=== PATIENT | female | born 2005 | race Two or more races ===

== ENCOUNTER 2024-05-11 00:20 | Emergency (ER) | payer SELFPAY ==
--- NOTE | 2024-05-10 23:33 | XR_ITS ---
Examination: Complete OB ultrasound greater than 14 weeks Date and time of exam: May 10, 2024 11:50 PM Indications: Dizziness weakness beginning one week ago Findings: Viable intrauterine single fetus with single amniotic sac presentation Vertex Cardiac motion 137 BPM Placenta anterior grade 3 Umbilical cord insertion seen Amniotic fluid index 26.4 cm spine maternal left Ovaries obscured by bowel gas. Composite estimated gestational age based on BPD, head circumference, abdominal circumference, femur length is 32 weeks 4 days Estimated weight 1775 g. Survey of intracranial anatomy, spinal anatomy, abdominal anatomy, four-chamber heart performed with no abnormalities identified. Impression: Viable intrauterine gestation vertex presentation.
--- NOTE | 2024-05-10 23:34 | EKG_ITS ---
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
[2024-05-10 23:36] VITALS: RESP 17; TEMP 37
[2024-05-10 23:39] VITALS: BP 109/71; PULSE 138; PULSE 144; O2SAT 100
[2024-05-10 23:44] VITALS: BMI 30.4
[2024-05-11 00:24] VITALS: BMI 30.2
[2024-05-11 00:49] VITALS: BP 108/74; PULSE 98; RESP 18; TEMP 36.9; O2SAT 97
--- NOTE | 2024-05-11 00:51 | EDNOTE_ITS ---
ED Dizzyness RME/HPI General Chief Complaint: Dizziness Stated Complaint: DIZZINESS X 5 DAYS Time Seen by Provider: 05/11/24 00:55 Arrival date/time: 05/11/24 00:20 Limitations: no limitations RME / HPI RME / HPI Narrative: Dr. Regan's Main ED Evaluation: 18yo female who is 31 weeks gestation presents to the ED for a chief complaint of dizziness x 5 days. Patient states she's been dizzy and lightheaded for the last 5 days and felt like she was going to pass out tonight, so she came in for evaluation. She states she's been drinking water. She denies any fever, chills, vision changes, UTI symptoms or any other associated symptoms. No known allergies. Related Data Home Medications ?Medication ?Instructions ?Recorded ?Confirmed No Known Home Medications 06/01/19 07/22/22 Allergies Allergy/AdvReac Type Severity Reaction Status Date / Time No Known Allergies Allergy Verified 05/11/24 00:27 Review of Systems Review of Systems Systems Reviewed: All systems reviewed, normal except as documented Past Medical History Past Medical History CARDIAC: Negative Congestive Heart Failure RESPIRATORY: Negative Chronic Obstructive Pulmonary Disease (COPD) GENITOURINARY: Negative Renal Disease ENDOCRINE: Negative Diabetes Mellitus Type 1 or Diabetes Mellitus Type 2 Social History SMOKING STATUS: Never smoker Travel History EBOLA RISK: No ED Exam General Limitations: Present no limitations General appearance: Present alert and in no apparent distress Head Head exam: Present atraumatic Eye Eye exam: Present normal appearance, PERRL and EOMI ENT ENT exam: Present normal oropharynx and mucous membranes dry Neck Neck exam: Present normal inspection, full ROM and trachea midline Chest Chest inspection: Present normal inspection and symmetric chest wall rise Respiratory Respiratory exam: Present normal lung sounds bilaterally Cardiovascular Cardiovascular exam: Present normal rhythm, tachycardia and normal heart sounds; Absent systolic murmur or diastolic murmur Abdominal Exam Abdominal exam: Present soft, normal bowel sounds and other (gravid) Extremities Exam Extremities exam: Present normal inspection and full ROM; Absent pedal edema Back Exam Back exam: Present normal inspection and full ROM Neurological Exam Neurological exam: Present alert, oriented X3 and CN II-XII intact Psychiatric Psychiatric exam: Present normal affect and normal mood Skin Skin exam: Present warm, dry, intact and normal color Course Quality Measures none Orders Category Date Time Status EKG (ED ONLY) *Do not use* NOW Care 05/11/24 00:56 Completed IV [Insert IV] STAT Care 05/11/24 00:56 Active Non-Stress Test NOW Care 05/10/24 23:33 Active Sterile Vaginal Exam PRN Care 05/10/24 23:45 Ordered EKG (ED Only) Stat Exams 05/11/24 00:56 Ordered US OB >= 14 weeks Fetus Stat Exams 05/10/24 23:33 Taken CBC Stat Lab 05/11/24 01:30 Completed CMP [Comprehensive Metabolic Panel] Stat Lab 05/11/24 01:30 Completed Drug Screen,Urine Stat Lab 05/11/24 01:57 Completed Urinalysis Stat Lab 05/11/24 01:57 Completed Sodium Chloride 0.9% 1000 ml [Ns] 1,000 ml Med 05/11/24 00:56 Discontinued IV 999 mls/hr EKG (RT) Stat RT 05/10/24 23:34 Draft Reevaluation(s) Reevaluation #1: Patient states she feels significantly better after receiving fluids and no longer feels dizzy. Patient is stable to be discharged home. Time: 02:30 Vital Signs Vital signs: Vital Signs Temperature 98.6 F 05/10/24 23:36 Respiratory Rate 17 05/10/24 23:36 Pulse ox is 97% on room air, which is normal according to my interpretation. Dizziness MDM Narrative MDM Narrative:: 18-year-old at 31 weeks cleared by OB and sent to the emergency department. The patient states she has been drinking less fluid in the last few days. She feeling lightheaded but no syncope. After liter of fluids here to emergency department patient feels better. EKG does not show arrhythmia and otherwise the patient has a normal QTc. No evidence of UTI. Baby is kicking and otherwise the patient does not feel she is in labor. Return precautions are given understood. Patient data External records reviewed:: [facility] previous records (Per chart review, patient was seen here on 07/22/22 for lactic acidosis.) Clinical information provided by:: patient Social determinants that could affect healthcare access:: none Patient has the following chronic illnesses:: none How is presenting disease/condition affected by chronic disease/condition?: no chronic disease Evaluation data The following diagnostics were reviewed and interpreted by me:: lab results Lab and/or radiology exams considered but not ordered:: none Interpretation Summary: CBC is normal, CMP is normal, UDS is negative, UA is negative for UTI, according to my interpretation. Medications / Prescriptions Medications or Prescriptions considered but not ordered:: none Medication administrations:: Medication Administration History Discontinued Medications Sodium Chloride (Ns) 1,000 mls @ 999 mls/hr IV .Q1H1M ONE Stop: 05/11/24 01:56 Last Infusion: 05/11/24 01:55 Dose: Infused Documented By: Admin: 05/11/24 01:19 Dose: 999 mls/hr Documented By: TC see above, if any Consultations Consultation(s) initiated? (list below): No Diagnosis Dizziness Differential Diagnosis: other (dehydration, electrolyte abnormality, arrhythmia) Most likely diagnosis given after review of the tests above:: see below Admission Indicated Admission indicated?: not indicated Admission Request Was there a request for admission?: No Disposition Plan Disposition Plan: Discharge Discharge Attestation Discharge Attestation: The patient and all family members were given an opportunity to ask questions and understood the discharge instructions. Discharge instructions specifically effects, indications for sooner follow up or return to the emergency department, and the expected course of current diagnosis. Patient condition: Stable Discharge Plan Plan Patient Disposition: HOME (Self Care) Disposition Comment: ED Patient condition on transfer: Stable Prescriptions/Referrals Prescriptions/Med Rec: No Action No Known Home Medications Referrals: Shahzad Crawford MD [Physician] - Problem List Clinical Impression: Acute dehydration Patient/Caregiver Discharge Instructions Diet Instructions: Stay hydrated Pedialyte or Gatorade Education Materials: Kick Counts, Dehydration, ED Dizziness, Uncertain Cause, Antepartum Discharge Additional Instructions: Stay hydrated with Pedialyte and/or Gatorade. Return to the emergency department for any worsening symptoms, or any other concerns. See your primary care or [facility] as scheduled. Print Language: [place] Stand Alone Forms: Rula Award Info., Patient Portal Info Letter
--- NOTE | 2024-05-11 01:02 | PC.NURSE ---
at 0013, report called to ED restaurant associate, Jose.
[2024-05-11] MEDS: SODIUM CHLORIDE 0.9% 1000 ML 1,000 ML 999 ML IV (01:19)
--- NOTE | 2024-05-11 01:26 | PC.NURSE ---
Pt states that today's episode of dizziness has gotten better since being at the hospital. Pt also admits that this is her first and she is nervous
[2024-05-11 01:31] VITALS: BP 108/62; PULSE 81; RESP 25; O2SAT 98
--- NOTE | 2024-05-11 01:39 | PRELIM_ITS ---
Obstetric ultrasound with Doppler. May 10, 2024 2350 hours Clinical history: DizzinessComparison : None.Findings:There is a gravid uterus with a live fetus in vertex presentation of mean gestational age 31 weeks and 2 days (by biometry). cardiac activity is present at a heart rate of 13 7 beats per minute. The placenta is anterior in location, maturity grade 3. There is no evidence of p lacenta previa or retroplacental hemorrhage. Amniotic fluid is adequate (BRENDA = 26.4 cm). Estimated fe ghazala weight is 1775 grams.Impression:Gravid uterus with a single live fetus in vertex presentation of mean gestational age 31 weeks 2 days. Report Electronically Signed By: Hitesh Marks 05/11/2024 1: 39:15 AM [EST]
[2024-05-11 01:45] VITALS: BP 109/81; PULSE 90; RESP 24; O2SAT 100
[2024-05-11 02:00] LABS: Basophils % (Auto) 0 % (0-2.5); Eosinophils % (Auto) 0 % (0-10); Hematocrit 40.1 % (36.0-46.0); Hemoglobin 13.6 g/dL (12.0-16.0); Immature Granulocytes % (Auto) 1 % (0-0); Immature Granulocytes Auto 0.04 Thou/mm3 (0.00-0.00); Lymphocytes # (Auto) 0.7 Thou/mm3 (1.0-5.0); Lymphocytes % (Auto) 15 % (10-50); Mean Corpuscular HGB Conc 33.9 g/dl (31.0-37.0); Mean Corpuscular Hemoglobin 25.9 pg (25.0-35.0); Mean Corpuscular Volume 76 fL (80-100); Monocytes # (Auto) 0.7 Thou/mm3 (0.0-0.8); Monocytes % (Auto) 16 % (0-12); Neutrophils # (Auto) 3.1 Thou/mm3 (1.8-7.7); Neutrophils % (Auto) 68 % (37-80); Nucleated Red Blood Cell % 0 /100 WBC (0); Platelet Count 263 Thou/mm3 (140-440); RDW Standard Deviation 41.9 fL (36.4-46.3); Red Blood Count 5.25 Miln/mm3 (4.00-5.20); White Blood Count 4.6 Thou/mm3 (4.5-11.0)
[2024-05-11 02:01] VITALS: O2SAT 100
[2024-05-11 02:06] LABS: Collection Type, Urine Voided; RBC,Urine 0 /hpf (0-3); WBC,Urine 0 /hpf (0-5)
[2024-05-11 02:21] LABS: Bacteria,Urine Rare; Bilirubin,Urine Negative (Negative); Blood,Urine Negative (Negative); Clarity,Urine Turbid (Clear/Hazy); Color,Urine Yellow (Lt Yel-Yel); Glucose, Urine Negative (Negative); Ketones,Urine 1+ (Negative); Leukocyte Esterase,Urine Negative (Negative); Nitrite,Urine Negative (Negative); Protein,Urine 3+ (Neg - Trace); Specific Gravity,Urine 1.019 (1.001-1.035); Squamous Epithelial Cell,Urine 14 /hpf (0-5); Urobilinogen,Urine Negative mg/dL (0.0-1.0)
[2024-05-11 02:23] LABS: Alanine Aminotransferase 12 U/L (10-49); Albumin, Serum 4.3 gm/dL (3.5-5.0); Albumin/Globulin Ratio 1.5 (1.2-2.2); Alkaline Phosphatase 83 U/L (46-116); Anion Gap 11 (7-16); Aspartate Amino Transferase 21 U/L (0-34); BUN/Creatinine Ratio 11 Ratio (12-20); Bilirubin,Total 0.3 mg/dL (0.3-1.2); Blood Urea Nitrogen 8 mg/dL (9-23); Calcium 9.8 mg/dL (8.3-10.6); Calcium (Corrected) 9.8 mg/dL (8.5-10.1); Chloride 103 mMol/L (98-107); Creatinine (Component) 0.7 mg/dL (0.6-1.3); Estimated Creatinine Clearance 127.5 mL/min (>60); Globulin 2.9 gm/dL (2.3-3.5); Glucose 88 mg/dL (74-106); Osmolality,Calculated 269 (275-295); Potassium 3.8 mMol/L (3.4-5.1); Sodium 136 mMol/L (136-145); Total Protein 7.2 gm/dL (5.7-8.2); eGFR > 60 See Note
[2024-05-11 02:27] LABS: Amphetamine/Methamp Scrn,U Negative (Negative); Barbiturate Screen,Urine Negative (Negative); Benzodiazepines Screen,Urine Negative (Negative); Benzoylecgonine Screen, Ur Negative (Negative); Fentanyl Screen,Urine Negative (Negative); Opiate Screen,Urine Negative (Negative); THC Screen,Urine Negative (Negative)
[2024-05-11 03:03] VITALS: BP 106/56; PULSE 88; RESP 18; TEMP 36.7; O2SAT 99
== END 2024-05-11 03:00 | disposition home or self-care (01) ==
LOC: SERX 01:33
PROVIDERS: Emergency Provider Emergency Medicine; PCP Family Medicine
DX: O99.283 Endocrine, nutritional and metabolic diseases complicating pregnancy, third trimester (principal); E86.0 Dehydration; O99.891 Other specified diseases and conditions complicating pregnancy; R42 Dizziness and giddiness; Z3A.31 31 weeks gestation of pregnancy
CPT/HCPCS: 36415; 59025; 76805; 80053; 80307; 81001; 85025; 93005; 96360; 96361; 99284; J7030